=== PATIENT | female | born 1955 ===

== ENCOUNTER 2017-04-09 23:32 | Inpatient (IN) | payer MEDICARE ==
[~2017-04-09] VITALS: Ht 154.9 cm; Wt 82.0 kg
--- NOTE | ~2017-04-09 | WRIGHTHP ---
[place], [place] PATIENT HISTORY AND PHYSICAL EXAM [id number] #: [id number] ROOM: 311 DOCTOR: Jina MARROQUIN,ARTURO BIRTHDATE: [birth year] DOS: 04/10/2017 REASON FOR HOSPITALIZATION: Increased psychosis secondary to noncompliance with medication. HISTORY OF PRESENT ILLNESS: The patient seen and chart reviewed. A 61-year-old female with history of schizophrenia versus schizoaffective disorder, who was brought into the ER by the police. Police was called because the patient was increasingly psychotic, delusional and paranoid. The police had to pink slip her. Reportedly, the patient was being confrontational to neighbors and others around the area. She was screaming hoahaoism and odd things. She was throwing trash around her yard. She was also frequently arguing with her neighbors. The patient was in her bed. She is known to me from previous encounter in a different hospital. She was able to recognize me. When asked her that who took her to the hospital, she said that the police took her. When I asked her why the police took her to the hospital, she said "I don't know." She said that she was not taking her medication. When I asked her why she was not taking her medication, she did not answer me. The patient denied being depressed, sad, hopeless or helpless. She said that she will take her medication, but from my previous experience at the other hospital where the team had to go to the court and get forced medication order for her. PAST MEDICAL HISTORY: Significant for history of brain aneurysm and hypertension. PAST PSYCHIATRIC HISTORY: Three to four psychiatric hospitalizations. Denied prior suicide attempt. No suicide in the family. Denied having any gun at home. SUBSTANCE ABUSE HISTORY: The patient has a history of alcohol abuse in the past, but not regularly. Her urine drug screen was negative and she was also not drinking alcohol. SOCIAL HISTORY: She was born and raised in [place], [place]. She claims that she had 4 years of college, never , no kids. She said that she was living by herself. Denied any history of physical or sexual abuse. MENTAL STATUS EXAMINATION: The patient was pleasant and cooperative, described her mood as "okay." Affect, mood congruent, broad range, labile. Thought process disorganized. She denied auditory or visual hallucination, but seems responding to stimuli. She is delusional, grandiose and religiously preoccupied. She denied any suicidal ideation, intent or plan. She also denied any homicidal ideation, intent or plan. Insight and judgment impaired. ASSESSMENT: Schizoaffective disorder, currently psychotic and manic. PLAN: [place], [place] PATIENT HISTORY AND PHYSICAL EXAM NAME: HONEY VILLARREAL UNIT #: [id number] ROOM: [facility] DOCTOR: Jina MARROQUIN,ARTURO BIRTHDATE: [birth year] 1. I will start her back on Depakote, but increase the dose to 750 mg twice a day. 2. I will restart her back on Haldol 5 mg twice a day with a plan to give her a long-acting injection. 3. I will start her on Seroquel 200 mg twice a day. I am not sure if she will take that or not. 4. Continue redirection. 5. Supportive care, collateral information, encourage activity in groups. The patient probably will benefit from getting a guardian due to her long history of mental illness and noncompliance with medication. ARTURO MARROQUIN MD CM:HISPHYS:PATIENT HISTORY AND PHYSICAL EXAMINATION [phone] Jina MARROQUIN 04/10/17 1039 interface
--- NOTE | ~2017-04-09 | PR ---
[place], [place] PROGRESS NOTE NAME: HONEY VILLARREAL [facility] #: [id number] UNIT #: [id number] ROOM: 311 DOCTOR: DANNI GANDHI BIRTHDATE: [birth year] DOS: 04/22/2017 SUMMARY OF VISIT: The patient was interviewed in her room where she engaged in conversation. She is almost hypomanic. She was fixated on the fact the reason that her hemoglobin A1c's were up was because of the big ice coffee she used to drink. She really would engage me regarding psychiatric type stuff. She acknowledged receiving her medications yesterday. States her sleep and appetite are really good. Mood right now was appropriate with me. She is just a little off, but I do not have a good baseline on her yet. MENTAL STATUS: Alert and oriented to person, place, approximate time. No delusions or paranoia. No overt signs of auditory or visual hallucinations. Again, I think she is a little hypomanic. Good sleep and appetite. PLAN: She received her Haldol injection yesterday, I will see how she does over the next 24 hours. Plan is to get her discharged to least restrictive environment as possible once she is psychologically stable. LAURYN GANDHI CNP CM:PNTRANS [phone] DANNI GANDHI 04/22/17 1531 interface
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
--- NOTE | ~2017-04-09 | PR ---
[place], [place] PROGRESS NOTE [id number] UNIT #: [id number] ROOM: 311 DOCTOR: RALPH LAWRENCE MD BIRTHDATE: [birth year] DOS: 04/11/2017 CHIEF COMPLAINT: "I don't want that fake black market medicine, I only take oral medicine." SUMMARY OF THE VISIT: The patient was interviewed in her room. She engaged in conversation with a nurse present. She reports that she does not want to take any kind of fake medicine that is being offered to her. She feels that the medicine is all black market medicine and is not safe. She remains grossly psychotic and delusional. She was pleasant, however, though and engaged readily in conversation with me. She was somewhat flighty and tangential. MENTAL STATUS: She remains alert and oriented with some time gaps. Mood is labile and she shifts very quickly. She remains grossly psychotic and delusional. Her speech is nearly pressured, but she is interruptible. She is very circumstantial. She remains paranoid. Memory is intact. PLAN: At the present time, she is not wanting to be cooperative with her Seroquel. I will discontinue Seroquel p.r.n., Haldol and start her on Abilify 15 mg a day. I will also start her on Geodon as a p.r.n. We will engage in individual and crane milieu activity, planning to return home when stable. RALPH LAWRENCE MD CM:PNTRANS [phone] RALPH LAWRENCE MD 04/11/17 1305 interface
--- NOTE | ~2017-04-09 | PR ---
[place], [place] PROGRESS NOTE [id number] UN[facility] #: [id number] ROOM: 311 DOCTOR: RALPH LAWRENCE MD BIRTHDATE: [birth year] DOS: 04/19/2017 CHIEF COMPLAINT: "I don't need medicine, I don't have anything wrong with me." SUMMARY OF THE VISIT: The patient was interviewed as she was standing and watching television in the dining area. She stopped and engaged readily in conversation. She continued once again to deflect any issues, stating that she had no problems and was perfectly fine. She reports that she is sleeping better and eating better, mainly because the bright lights in the hallway have been turned down. Nurses report she continues to be episodically noncompliant with medications, for the most part mainly noncompliant but every once in a while she will slip and take some of her metformin or one of her other medications. She reports that she has nothing wrong with her both medically and psychiatrically and has no reason to be here. She is anxious to be able to talk to the judgment or classer to be able to convince them that she can be discharged. MENTAL STATUS: She remains alert and oriented. Mood does still seem to be wildly labile. Affect inappropriate. She does seem to be grossly delusional, religiously preoccupied and has limited insight into her behavior. At times, she does tend to escalate, but redirects more readily than she had been previously. Memory for the most part is intact. PLAN: At this point in time, we will proceed with the court hearing to determine whether or not any further length of stay is necessary. If this is granted, we will attempt to engage her then to cooperate so that we can work towards a plan in discharging her. The nurses have been able to episodically get her to take some of , but this has not been on a consistent basis and therefore, it is unlikely to be able to consistently work for her. We will continue to attempt to also engage her in individual and crane milieu activities with the ultimate plan to discharge her back to the community when psychiatrically stable. RALPH LAWRENCE MD CM:PNTRANS [phone] RALPH LAWRENCE MD 04/19/17 1436 interface
--- NOTE | ~2017-04-09 | DS ---
[place], [place] DISCHARGE SUMMARY [id number] UN[facility] #: [id number] ROOM: 311 DOCTOR: RHONDA PABLO BIRTHDATE: [birth year] DOS: 04/27/2017 CHIEF COMPLAINT: "I am ready to go home." HISTORY OF PRESENT ILLNESS: She is a 61-year-old female with a longstanding history of schizoaffective disorder. She was brought in to the Emergency Room by the police. At home, she had become increasingly psychotic, delusional and paranoid. She was confrontational with her neighbors, screaming restorationism and other bizarre thoughts, throwing trash around her yard and she was frequently getting into confrontations with her neighbors. She was involuntarily admitted to the Behavioral Health Unit to rule out metabolic issues and to stabilize her on her medication. PAST MEDICAL HISTORY: Significant for brain aneurysm and for hypertension. SUMMARY OF HOSPITAL COURSE: Margarette was grossly psychotic when she came in, paranoid having delusions, very religiously preoccupied. She was refusing her medication at the beginning of her stay, several antipsychotics were tried to try to break her psychosis, including Vraylar and Haldol and Thorazine. She refused to take anything by mouth. Eventually, it was explained to her that she needs to take her medication, hearing was held to establish whether or not she needs to have a guardian ____, she was competent and that deemed to bring her around. She originally was only taking her Haldol if she was given as an injection. After about 2 days, she started taking it by mouth and actually started asking if it was time to have it. Her behavior improved greatly whenever she started taking her medication. She became pleasant, ____ hypomanic, very talkative, intrusive a little bit into other people's conversations, but definitely not having restorationism preoccupations or delusions. She believed that she was not to take any medication that was generic that she did not require any medication at all. By the end of her stay, she had been taking her medication regularly. She was interacting appropriately with other residents, pleasant and talkative. She was given a loading dose of Haldol decanoate 150 mg. and her next dose will be due on 05/19/2017, she will get a second loading dose 1 month later of Haldol decanoate and continue that on a monthly basis at the outpatient clinic where she follows. MENTAL STATUS AT DISCHARGE: On discharge, as I described. She is pleasant and cooperative. Affect and mood are both appropriate. Her thought process has become less disorganized than it was previously. She denied any hallucinations, delusions or paranoia. She is alert and oriented x 3. DISPOSITION: She will be discharged home. Her scripts will be sent with her and at this point, she is in psychiatrically stable condition. [place], [place] DISCHARGE SUMMARY NAME: BRIDGET VILLARREALLAURYN Joshi UNIT #: [id number] ROOM: [facility] DOCTOR: RHONDA PABLO BIRTHDATE: [birth year] Rhonda Pablo NP CM:DISCHARG 30 [phone] RHONDA PABLO 04/27/172201 interface
--- NOTE | ~2017-04-09 | PR ---
[place], [place] PROGRESS NOTE [id number] #: [id number] ROOM: 311 DOCTOR: RALPH LAWRENCE MD BIRTHDATE: [birth year] DOS: 04/17/2017 INTERVAL NOTE. CHIEF COMPLAINT: "I won't take any medicines, I'm not sick, I don't need anything. The is just trying to poison people." SUMMARY OF THE VISIT: The patient was interviewed once again in her room. She sat on the bed and moved around in a very agitated fashion. She continues to be fixated on not eating medicines and not being sick, feeling that all the medicines are poison, and that the is plotting secretly to hurt people in this country. She continues to be noncompliant with all aspects of her care. MENTAL STATUS: She is alert and oriented with some time gaps. Mood is still labile. Affect inappropriate. For the most part, she is uncooperative with my mental status examination. PLAN: At this point, we will continue to offer her medication. We will be going to court soon and allow the signal integrity engineer to determine the appropriate course of her treatment at this point. RALPH LAWRENCE MD CM:PNTRANS [id number] RALPH LAWRENCE MD 04/17/17 1354 interface
--- NOTE | ~2017-04-09 | PR ---
[place], [place] PROGRESS NOTE [id number] UNIT #: [id number] ROOM: 311 DOCTOR: RALPH LAWRENCE MD BIRTHDATE: [birth year] DOS: 04/16/2017 CHIEF COMPLAINT: "I don't need anything, I don't need medicine, I am not sick." SUMMARY OF THE VISIT: The patient was interviewed in her room where she sat on her bed. She continues to be wildly labile in her mood and affect. Responses tend to be inappropriate. She continues to refuse all medicines, even her blood pressure medicines, stating that she has nothing wrong with her at all and she is perfectly fine and all of these medicines are poison and black market medicines and we are just trying to drug her. Attempts to redirect and show her the need for these medicines have been met with her continuing to be grossly delusional. MENTAL STATUS: She is alert and oriented to person, place, and approximate to time. Mood remains labile. Affect inappropriate. She is grossly delusional. There is a level of paranoia about her. Memory for the most part is intact. PLAN: Screening examinations reveal her to have a low vitamin D level of 25.7. I will start her on vitamin D 50,000 international units q. Tuesday. I will have staff show her the results of the low vitamin D and see if she is willing to comply. If not, this will be yet a further example of her gross delusion in believing that she has absolutely nothing wrong with her. RALPH LAWRENCE MD CM:PNTRANS [phone] RALPH LAWRENCE MD 04/16/17 1215 interface
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
--- NOTE | ~2017-04-09 | PR ---
[place], [place] PROGRESS NOTE [id number] #: [id number] ROOM: 311 DOCTOR: DANNI GANDHI BIRTHDATE: [birth year] DOS: 04/23/2017 SUMMARY: The patient was assessed in her room where she engaged really in conversation. 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 After they cut the pill, she was willing to take it. Other than that her only question for me was when I thought maybe she could get out of here and I advised her that per the doctor's note that it looked like it would be reevaluated on Tuesday, which she seemed to be okay with. MENTAL STATUS EXAMINATION: She is alert and oriented to person, place and approximate time. There are no delusions or paranoia that I could see. No overt signs of auditory or visual hallucinations, not hypomanic as I saw her yesterday. She has had good sleep, good appetite and engage in conversation, even though superficial. She does tend to fixate on things. PLAN: She received her Haldol injection a couple days ago, I think it is kicking and the plan is to discharge her to the least restrictive environment as possible once she is stable and again, I believe I saw the previous REMELT SUGAR BOILER's note or doctor's note that they were going to reevaluate that or per nursing on Tuesday. LAURYN GANDHI CNP RALPH LWARENCE MD CM:ANA 0302 DANNI GANDHI 04/25/17 1641 interface
--- NOTE | ~2017-04-09 | PR ---
[place], [place] PROGRESS NOTE [id number] UNIT #: [id number] ROOM: 311 DOCTOR: RALPH LAWRENCE MD BIRTHDATE: [birth year] DOS: 04/20/2017 CHIEF COMPLAINT: "I had a couple doses of the Haldol already, Dr. Lawrence." SUMMARY OF THE VISIT: The patient was interviewed as she sat eating her breakfast. She engaged readily in conversation. She was much more pleasant and bright and engaging and was actually goal directed in her thinking. I did attempt to educate her on alternatives to the Haldol. Once when I presented as having less side effects, she, however, reported that she has not had any side effects from the Haldol to date and would prefer just to stay with it at this point in time. She was not grandiose, moravian or demanding and she did tend to stay on topic much better. This after only a few doses of the Haldol. Initially, she required taking the Haldol intramuscularly, but lately then has been compliant and has taken it orally. MENTAL STATUS: She is alert and oriented to person, place and time. Mood does seem to be starting to trend towards euthymia. Affect is more appropriate. There are no symptoms of hypomania or angeli. Her delusions seem to have lessened in frequency and intensity. Memory is intact. PLAN: I will maintain the current dose of Haldol 5 mg p.o. or IM t.i.d. Given the fact that she does seem to be tolerating this well, I see no extrapyramidal symptoms, tardive dyskinesia, sedation, somnolence or other side effects. I will plan to load with Haldol Decanoate 150 mg IM tomorrow. We will maintain the oral and the possible intramuscular short-acting Haldol for few days just to make certain that we overlap monitor for risk and benefit, plan to discharge then home when psychiatrically stable. RALPH LAWRENCE MD CM:PNTRANS [phone] RALPH LAWRENCE MD 04/20/1746 interface
--- NOTE | ~2017-04-09 | PR ---
[place], [place] PROGRESS NOTE NAME: HONEY VILLARREAL UNIT #: [id number] ROOM: 311 DOCTOR: RALPH LAWRENCE MD BIRTHDATE: [birth year] DOS: 04/15/2017 CHIEF COMPLAINT: "I had the [facility] assessment, I will be going home today. I cannot take any of the medicines here, they are all black market and they make me sick." SUMMARY OF THE VISIT: The patient was interviewed in the dining area where she was sitting with a female peer. She did disengage and engaged in conversation with me. She continues to exhibit significant psychosis. She is very delusional and very labile in her mood. When I did discuss with her the fact that she would be having a court hearing today to determine whether or not she would have a continued length of stay, she reported to me that the court hearing had already occurred and that she was released and she should be going home today. When I attempted to redirect that this was not true, she was rather dismissive, but did not escalate to the point where she became verbally aggressive towards me as she has in the past. She remains fairly pleasant this morning, although again as mentioned previously, delusional. MENTAL STATUS: She is alert and oriented to person, place and approximate to time. Mood remains labile. Affect inappropriate. There is a significant amount of mood debility and gross psychosis noted. She does have some processing difficulty because of the psychosis. Memory for the most part is intact. PLAN: At this point, we will proceed with the court hearing to determine if a continued length of stay is warranted. We will continue to attempt to engage her in individual and crane milieu activity. We will also continue to attempt to engage her in compliance with pharmacotherapy. We will discharge her then when psychiatrically stable. RALPH LAWRENCE MD CM:PNTRANS 1 00 RALPH LAWRENCE MD 04/15/[id number] interface
[2017-04-10] MEDS ORDERED: LISINOPRIL20 MG PO (02:52)
[2017-04-10] MEDS ORDERED: AMLODIPINE BESYL5 MG PO (02:52)
[2017-04-10] MEDS ORDERED: METFORMIN500 MG PO (02:54)
[2017-04-10] MEDS ORDERED: OLANZAPINE10 MG PO (02:57)
[2017-04-10] MEDS ORDERED: DIVALPROEX SOD500 MG PO (02:58)
--- NOTE | 2017-04-10 04:00 | NUR ---
PT REFUSING TO PARTICIPATE IN ADMISSION ASSESSMENT. WILL COMPLETE MUCH POSSIBLE WITH INFORMATION FROM . WILL REAPPROACH AT A LATER TIME.
--- NOTE | 2017-04-10 04:08 | NUR ---
DR. HUBER MADE AWARE OF CONSULT FOR MED MANAGMENT
[2017-04-10 04:14] VITALS: BP 170/120
--- NOTE | 2017-04-10 04:14 | NUR ---
DR. HUBER MADE AWARE OF ELVELATED MANUAL BP OF 170/120. ORDERS RECIEVED FOR CLONDINE 0.2 MG PO NOW VERIFIED BY SECOND NURSE THEO MATAMOROS RN
[2017-04-10 04:19] VITALS: BP 170/120
--- NOTE | 2017-04-10 05:22 | NUR ---
HONEY VILLARREAL a 61 year old F admitted via stretcher from the ADMITTING as a emergency 72 hr. hold admission. Arrived on unit at 0330. ALLERGIES: RISPERDAL. Vital signs are: [id number] 170/120. The client refused to sign the following forms with stated understanding: Authorization For The Release of Medical Information, Clothing List, Consent and Release Forms/Receipt of Rights, Acknowledgement of Advance Directive Information, Behavioral Health Consent Form, and Informed Consent of Medications. Admitted under the services of Dr. MARROQUIN. A search was conducted and hazardous articles were removed. Client was oriented to the unit. ЕЛЕНА MATAMOROS
[2017-04-10 05:55] VITALS: BP 130/80
--- NOTE | 2017-04-10 05:55 | NUR ---
REPEAT BP OF 130/80. HTN BEGINNING TO RESOLVE IN RESPONSE TO MEDICATION.
--- NOTE | 2017-04-10 06:26 | NUR ---
24HR CHART CHECKS COMPLETE
--- NOTE | 2017-04-10 06:30 | NUR ---
PRN HALDOL AND BENADRYL INEFFECTIVE IN CALMING PATIENT. LABILE MOOD NOTED.
[2017-04-10] MEDS ORDERED: SEROQUEL100 MG PO (07:51)
[2017-04-10] MEDS ORDERED: HALDOL5 MG PO (07:51)
[2017-04-10] MEDS ORDERED: DEPAKOTE500 MG PO (07:52)
[2017-04-10] MEDS ORDERED: SEROQUEL300 MG PO (07:52)
[2017-04-10 08:39] VITALS: BP 118/78
--- NOTE | 2017-04-10 09:00 | NUR ---
PATIENT REFUSED MEDICATIONS, DR MARROQUIN TALKED WITH PATIENT AT THIS TIME AND PATIENT THEN WILLING TO TAKE MEDICATION AT THIS TIME. PATIENT PRAYED TO GOD FOR THE MEDICAITON AND WATER SHE WAS TAKING. THEN AFTERWARDS STARTED CURSING CALL THE NURSE A "BITCH". COMPLIANT WITH MEDICATIONS AT THIS TIME. PATIENT TALKING RELIGIOUSLY AT EACH MEAL AND TAKING MEDICATIONS WITH MUCH ENCOURAGEMENT.
--- NOTE | 2017-04-10 12:46 | NUR ---
PT did not attend Rt group this morning. PT was in room for group but became very inappropriate and disrespectful to other PTs and staff. PT using inappropriate language and refering to other PTs as stupid. Explained to PT this was not an appropriate place for that and PT refered to room as 3rd grade and staff member as the teacher. PT was removed from room by a nurse
[2017-04-10] MEDS ORDERED: LIPITOR40 MG PO (13:16)
--- NOTE | 2017-04-10 15:58 | NUR ---
PT did not attend RT group this afternoon. PT was asleep in her room
--- NOTE | 2017-04-10 17:19 | NUR ---
PATIENT IN DINING ROOM AND COMPLETED EATING DINNER. PATIENT PROVIDED WITH METFORMIN PERSCRIBED. PATIENT ARGUEMENTATIVE WITH MEDICATIONS STATING THE PILL WAS TOO BIG. PILL WAS CUT IN HALF AND PATIENT TOOK MEDICATION AT THIS TIME. PATIENT THEN STOOD UP CALLED NURSE A BITCH AND STARTED ARGUEING WITH NURSE AT NURSES STATION ON LEAVING. ONE ON ONE PROVIDED AND INEFFECTIVE. PATIENT WHEN DOWN TO ROOM FOR CHANGE OF ENVIRONMENT TO A LOW STIMULUS AREA.
--- NOTE | 2017-04-10 17:50 | NUR ---
PATIENT YELLING IN HALLWAY AND IN ROOM. PATIENT BEING CONFRONTATIONAL WITH OTHER PATIENTS IN REGARDS TO ORTHODOX AND ASKED IF OTHER PATIENT EVEN READS TO BIBLE. OTHER PATIENT ASSISTED AWAY FROM THIS PATIENT. ONE ON ONE PROVIDED TO LOWER VOICE DUE TO BEING DISRUPTIVE. PATIENT SPIT AT NURSE AND CONTINUES TO ESCULATE. PRN HALDOL 10MG IM AND PRN BENADRYL 50MG IM GIVEN AT THIS TIME. ONE GIVEN IN RIGHT DELTOID AND OTHER GIVEN IN LEFT DELTOID. PATIENT ENCOURAGED TO LAY DOWN IN BED TO REST.
--- NOTE | 2017-04-10 18:50 | NUR ---
PATIENT IS RESTING IN BED WITH EYES CLOSED, PRN HALDOL AND BENADRYL EFFECTIVE. PATIENT IS ALERT AND ORIENTED TO PERSON, PLACE AND TIME, ABLE TO VOICE NEEDS. MOOD IS LABILE AND PSYCHOTIC. THOUGHT PROCESS IS PREOCCUPIED WITH NONDENOMINATIONAL AND FLIGHT OF IDEAS. DENIES ANY HI/SI. HALLUCINATION AND DELUSIONS NOTED AUDITORY AND VISUAL, TAKING TO UNSEEN OTHER. PATIENT HAS INCREASED PARANIOA TAKING HER MEDICATIONS ARE SUGAR PILLS AND ATTEMPTS TO REFUSED MEDICATIONS. PATIENT IS AMBULATORY WITH STEADY GAIT. CONTINENT OF BOWEL AND BLADDER. MEAL INTAKE ARE GOOD WITH ADEQUATE FLUIDS. PATIENT CAN BECOME VERBALLY AGGRESSIVE AND POSSIBLE PHYSCIAL WHEN REDIRECTED. PLAN IS TO CONTINUE REDIRECTION, 1:1 AND CHANGE OF ENVIRONMENT NEEDED. MONITOR BEHAVIORS AND MEDICATION COMPLIANCE. Q 15 MINUTE CHECKS MAINTAINED.
[2017-04-10 19:53] VITALS: BP 103/51
--- NOTE | 2017-04-11 02:45 | NUR ---
PT AWOKE AND STARTED SINGING AND DANCING SWINGING FEET WHEN ASKED WHAT WAS WRONG PT THEN STARTED YELLING " I HAVE NO FUCKING SHOES ON, ARE THOSE YOUR SHOES? TAKE THEM THE FUCK OFF!" PT THEN BEGAN KNOCKING ON FLOOR WITH CLENTCHED FIST "THIS IS SO FUCKING HARD WHERE ARE MY FUCKING SHOES?". PT INFORMED THAT SHOE LACES ARE NOT ALLOWED ON THE UNIT AND THAT SHE COULD HAVE HER SHOES WITH OUT LACES. PT REFUSED AND BEGAN YELLING " JAX IS TURING ALL OF THIS INTO WATER, YOU CANT HURT ME". PT GIVEN A CHOICE OF TIME TO CALM HERSELF OR RECIEVE PRN INJECTION AND REMINDED OF UNIT RULES AND RESPECT FOR PEERS. PT IS RESTING ON BED AND NO LONGER DISPLAYING MANIC BEHAVIOR AND YELLING NONSENSICLE SPEECH AT THIS TIME.
--- NOTE | 2017-04-11 06:27 | NUR ---
PT REFUSING AM METFORMIN STATING THAT ALL DR.S AND LABS ARE LYING. PT BEGAN YELLING IN A SING SONGY VOICE "YOU'RE FUCKING STUPID SO FUCKING STUPID". PT INFORMED THAT THAT LANGUAGE WA INAAPROPRIATE AND NOT TOLERATED LEVEL OF DISRESPECT TOWARDS OTHERS. INFORMED OF HER RIGHT TO REFUSE MEDICATIONS. PT SLEPT 6 HOURS WITH OUT INTURRUPTION. CONTINUES TO ACTIVLY AUDITORY AND VISUAL HALLUCINATIONS, FOI, NONSENSICLE PRESSURED SPEECH.
--- NOTE | 2017-04-11 06:52 | NUR ---
PT CONTINUING TO REFUSE ALL LABS STATING THAT " SHOVE THAT BAR CODE UP YOU ASS" "MARY ALL READY HAD THOSE DONE I NEED YOU TO TAKE ANY OF MY BLOOD AND PERFORM EXPERIMENTS ON THE LORD HEALS ME"
[2017-04-11 08:00] VITALS: BP 122/67
--- NOTE | 2017-04-11 09:14 | NUR ---
Margarette is refusing all morning medications @ this time. She expressed some delusions related to her medications and added that she does not believe that she needs them. Education was provided, however, she is unreceptive @ this time.
--- NOTE | 2017-04-11 13:24 | NUR ---
Patient refused to participate during recreation therapy groups despite several attempts of encouragement.
--- NOTE | 2017-04-11 14:39 | NUR ---
Margarette has exhibited mood lability throughout the day. She has refused her lab testing and also her prescribed medications. On 1:1 interaction with staff she was noted to also exhibit sporadic episodes of irritability. This became more pronounced with the presentation of reality. She states that she hears "The holy spirit's voice." Voicing some paranoid ideas during her conversation with staff. Again reality orientation @ this time is noted to increase her agitation. She abruptly ended our conversation and stated, "Lady, you don't know what you are talking about. Now please leave my room." She is unreceptive to any attempts to educate her regarding prescribed medications. Insight is poor due to current mental status. Refer to [facility] flowsheet for specific monitoring. No urine specimen has been provided as of this time.
--- NOTE | 2017-04-11 15:50 | NUR ---
Patient was in and out of the room during recreation group this afternoon. Patient refusing to participate in painting craft. Patient confused and displaying delusional behaviors.
--- NOTE | 2017-04-11 19:48 | NUR ---
TREATEMENT TEAM WAS HLED TO [facility] WITH THE FOLLOWING: DR. LAWRENCE, SW, RNs, AND DIRECTOR.
[2017-04-11 20:00] VITALS: BP 114/63
--- NOTE | 2017-04-11 21:07 | NUR ---
PLEASENT AND COOPERATIVE. STATES SHE HAD AN "INTERESTING DAY". MEDICATION COMPLIANT. ATE FULL CONTAINER OF APPLESAUCE. DENIES ANY PROBLEMS AT THIS TIME. INFORMED HER WE NEED URINE SPECIMAN. VERBALIZED UNDERSTANDING. PLASTIC HAT PUT IN TOILET. ENCOURAGED HER TO CALL IF SHE NEEDS ANYTHING.
--- NOTE | 2017-04-11 21:25 | NUR ---
HANDED NURSE HER WRIST BAND. REFUSES TO WEAR STATES "IT BOTHERS ME". EXPLAINED REASON SHE NEEDS TO WEAR BUT SHE CONTINUES TO REFUSE
--- NOTE | 2017-04-12 00:10 | NUR ---
URINE OBTAINED. CLIENT IS PACING IN HER ROOM. RAMBLING RELIGOUS PHRASES AND PASSAGES OUT OF THE BIBLE. SHE CLAIMS THAT DEPAKOTE IS AN AMPHETAMINE AND MAKES HER UNABLE TO SLEEP. CONTINUES TO PACE ROOM AND WHEN CONFRONTED WITH REALITY SHE BECAME BELIGERANT AND ANGRY. SAT ON BED AND STARED AT ME FOR AWHILE THEN SAID SHE NEEDED MILK TO SETTLE HER BELLY AND HELP HER SLEEP. AMBULATED TO DININGROOM WHERE SHE DRANK 2 SMALL CARTINS OF MILK THEN WENT BACK TO ROOM. WILL MONITOR
--- NOTE | 2017-04-12 00:32 | NUR ---
24 HR chart check completed.
[2017-04-12 00:36] LABS: BILIRUBIN NEGATIVE (NEGATIVE); BLOOD NEGATIVE (NEGATIVE); CLARITY CLEAR (CLEAR); COLOR YELLOW (YELLOW); GLUCOSE NEGATIVE (NEGATIVE); KETONE NEGATIVE (NEGATIVE); LEUKO ESTERASE 1+ (NEGATIVE); NITRITE NEGATIVE (NEGATIVE); PH 5.5 (5.0-9.0); SPECIFIC GRAVITY <= 1.005 (1.005-1.030); UROBILINOGEN 0.2 E.U./dl (0.2-1.0)
--- NOTE | 2017-04-12 00:52 | NUR ---
APPEARS MILK EFFECTIVE FOR RESTLESSNESS AND AGGITATION. LAYING QUIET IN BED AND WHEN ASKED IF I COULD SHUT LIGHTS OFF SHE REPLIED "YES PLEASE" WILL MONITOR
[2017-04-12 00:53] LABS: BACTERIA 1+
--- NOTE | 2017-04-12 02:46 | NUR ---
P1- SCHIZOAFFECTIVE I- GROUP THERAPY, COPING SKILLS, UNDERSTAND THE DIFFERENCE BETWEEN DELUSIONS AND REALITY, MEDICATE PER DOCTORS ORDERS P--LIVE IN REALITY BASED SOCIETY, UNDERSTAND MEDICATIONS AND THEIR USES
--- NOTE | 2017-04-12 05:42 | NUR ---
CAME TO DESK WITH EXTREME ZOROASTRIANISM OVERTONES. CONTINUALLY REPEATING THAT SHE IS ALLERGIC TO ALL MEDICATIONS. SHOWS STAFF HER ALLERGY ALERT BRACELET AND SAYS THAT ST.E'S TOLD HER THAT SHE IS ALLERGIC TO ALL MEDICATIONS. BECAME AGGITATED WHEN PRESENTED WITH REALITY OF ALLERGIES AND STARTED CALLING STAFF BULLIES, LOSERS, ECT. REDIRECTION UNSUCCESSFUL. SHE INFORMED STAFF SHE IS NOT TAKING ANY MEDICATIONS BECAUSE SHE IS HEALTH AND GOD IS LOVE. WILL MONITOR
--- NOTE | 2017-04-12 06:31 | NUR ---
REFUSED AM CARE. STATES "I DON'T SHOWER IN COMMUNITY SHOWERS." UNABLE TO CONVINCE SHOWER IS CLEAN AND SHE WOULD NOT BE WITH OTHER WITHOUT SUCCESS. REFUSED MORNING MEDICATION. ASKED IF LAB WOULD BE ABLE TO DRAW BLOOD FOR TESTING ORDERED BY DOCTORS, SHE REFUSED.
[2017-04-12 09:23] VITALS: BP 136/82
--- NOTE | 2017-04-12 10:00 | NUR ---
PATIENT REFUSED LAB WORK AFTER 3 ATTEMPTS MADE. REFUSED ALL AM MEDICATIONS. KAYLIE PABLO NP AND ANGEL DIOR MADE AWARE. WILL HOLD LABS TODAY PER KAYLIE PABLO NP.
--- NOTE | 2017-04-12 13:23 | NUR ---
Patient refused to participate during recreation therapy groups this morning. When asked patient stands up waving her arms saying "I'm at a festival, don't bother me!" Patient also refusing recreation therapy assessments during this time.
--- NOTE | 2017-04-12 15:26 | NUR ---
PT attended RT group/trivia this afternoon, volunteering answers. Laughing and talking,reminicsing of her childhood. PT showed no inappropriate actions or language during group
--- NOTE | 2017-04-12 17:15 | NUR ---
PATIENT ALERT AND VERBAL. ABLE TO MAKE NEEDS AND WANTS KNOWN TO STAFF. PLEASANTLY PSYCHOTIC MOST OF THE SHIFT WITH PERIODS OF AGITATION AND IRRITABILITY. HAS BEEN VOICING MANDAEN, PARANOID, AND GRANDIOSE DELUSIONS T/O THE DAY. REALITY PRESENTED AND MET WITH AGITATION DURING THESE TIMES. REFUSED SHOWER THIS SHIFT AFTER MULTIPLE ATTEMPTS MADE- STATES "JAX DOEN'T ALLOW ME TO USE THE SHOWER PRODUCTS YOU HAVE, THEY AREN'T GOOD FOR ME." REALITY PRESENTED AND INEFFECTIVE. ONE ON ONE INEFFECTIVE. WALKING ABOUT THE UNIT THIS SHIFT, NO ELOPEMENTS ATTEMPTS MADE. NO COMBATIVE BEHAVIOR OR HALLUCINATIONS THIS SHIFT. REFUSED 1629 METFORMIN, STATES "I DON'T HAVE DIABETES AND WHAT ARE YOU TRYING TO GIVE THAT TO ME FOR." MEDICATION ATTEMPTED AND INEFFECTIVE. WILL CONTINUE Q15 MIN CHECKS, PRESENT REALITY NEEDED, REORIENT NEEDED. ONE ON ONE COMPLETED TODAY ABOUT NONCOMPLIANCE WITH TX AND REORIENTED WITH NO EFFECT. APPETITE GOOD THIS SHIFT, ATE 100% OF ALL MEALS. TAKING FLUIDS WELL. INTERACTING APPROPRIATELY WITH PEERS.
--- NOTE | 2017-04-12 18:46 | NUR ---
[facility].
[2017-04-12 20:00] VITALS: BP 155/83
--- NOTE | 2017-04-12 20:09 | NUR ---
INTERACTING WITH PEERS. CONTINUES WITH CHRISTIANITY OVERTONES. REFUSES TO HAVE BLOODPRESSURE RECHECKED MANUALLY..
--- NOTE | 2017-04-12 20:52 | NUR ---
REFUSED PM MEDICATIONS. INCREASED MELITA AND RELIGOUS OVERTONES YELLING AT STAFF AND PEERS ABOUT NOT BEING ABLE TO WEAR HER RED BRA. EXPLAINED THAT IT HAS AN UNDERWIRE AND CAN'T HAVE IT IT COULD BE A WEAPON. TRYING TO SHOVE HER PATIENT RIGHTS PAPERS IN MY FACE SAYING "IT DOESN'T SAY THAT" UNABLE TO REDIRECT ABOUT BRA. INFORMED CLIENT THAT SHE WOULD HAVE TO LEAVE DINING AREA IF SHE CAN'T CONTROL HERSELF AND STOP BOTHERING PEERS. CLIENT AGREED TO CALM DOWN. WILL MONITOR
--- NOTE | 2017-04-12 21:19 | NUR ---
TREATMENT TEAM WAS HELD TO [facility] WITH THE FOLLOWING: DR. LAWRENCE, RNs, AT, SW AND MEDICAL STUDENT. DR LAWRENCE WISHES TO FILE CIVIL COMMITTMENT DUE TO PT NOT READY FOR DISCHARGE.
--- NOTE | 2017-04-12 21:21 | NUR ---
ZANE COMPLETED HISTORY AND AFFADAVIT. NO NOTARY IN BUILDING. ZANE FAXED INFORMATION WITHOUT AFFIDAVIT TO [facility] [address] [facility].
--- NOTE | 2017-04-12 21:22 | NUR ---
ZANE LEFT VM FOR [facility] RE[facility] PRESCREENIG [facility]
--- NOTE | 2017-04-12 21:22 | NUR ---
ZANE RECEIVED VM FROM [facility] REQUESTING INFORMATION DUE TO HAVING PROVIDED SERVICES TO PT. ZANE RETURNED CALL AND INFORMED ALE THAT PT IS ON UNIT BUT DOES NOT WANT ALE TO KNOW DETAILS OF STAY.
--- NOTE | 2017-04-12 21:24 | NUR ---
SW ATTEMPTED TO COMPLETE PT'S PSYCHOPSOCIAL HISTORY . PT COOPERATIVE FOR A LITTLE WHILE THEN TOLD SW TO GET INFORMATION FROM THE POLICE. SW COMPLETED INFORMATION BUT USING THE CHART.
--- NOTE | 2017-04-13 00:38 | NUR ---
EYES CLOSED. RESP EASY NON LABORED. OFFERED MEDICATIONS A SECOND TIME BEFORE SHE WENT TO BED AND AGAIN REFUSED
--- NOTE | 2017-04-13 01:37 | NUR ---
24 HR chart check completed.
[2017-04-13 07:50] VITALS: BP 119/72
--- NOTE | 2017-04-13 09:10 | NUR ---
PATIENT REFUSED MEDICATIONS THIS MORNING X 3 ATTEMPTS, PROVIDED EDUCATION WHAT EACH MEDICATIONS WAS FOR. PATIENT STATED "IT'S MY RIGHT AND I'M NOT TAKING THEM" AND SHUT THE DOOR IN NURSE FACE.
--- NOTE | 2017-04-13 16:43 | NUR ---
PATIENT REFUSED METFORMIN MEDICATION AFTER MEDICATION EDUCATION.
--- NOTE | 2017-04-13 18:23 | NUR ---
PATIENT IS ALERT AND ORIENTED TO PERSON, PLACE AND TIME. ABLE TO VOICE NEEDS. MOOD IS LABILE AND PSYCHOTIC. TWO SMALL OUTBURST NOTED DURING SHIFT AND REDIRECTED EASILY. PATIENT CONTINUES TO REFUSED MEDICATION WITH MUCH ENCOURAGEMENT. THOUGHT PROCESS IS PARANOID AND PREOCCUPIED. PATIENT RESPONSE TO INTERNAL STIMULI WITH PARANOIA AND FAITH DELUSIONS. INDEPENDANT WITH ACTIVITIES OF DAILY LIVING. CAN BE EASILY AGAITATED, INTRUSIVE AND DEMANDING AT TIMES. DENIES ANY HI/SI OR PAIN. PATIENT IS AMBULATORY WITH STEADY GAIT. GOOD APPETITE WITH ADEQUATE FLUIDS. CONTINENT OF BOWEL AND BLADDER. Q 15 MINUTE SAFETY CHECKS MAINTIANED.
--- NOTE | 2017-04-13 18:47 | NUR ---
TREATMENT TEAM WAS HELD TO DISCUSS CARE WITH THE FOLLOWING: DR. LAWRENCE, RNs, SW, AND MEDICAL STUDENT. SW REPORTED THAT PAPERWORK WAS FILED FOR VCIVIL COMMITTMENT WITH PROBATE COURT. DR. LAWRENCE FEELS PT NEEDS FURTHER TREATMENT DUE TO HER NONCOPLIANCE WITH TAKING MEDICATIONS.
--- NOTE | 2017-04-13 18:47 | NUR ---
SW HAD AFFIDAVIT NOTARIZED AND FAXED TO [facility] [address] [facility].
--- NOTE | 2017-04-13 18:49 | NUR ---
[facility] ON UNIT TO COMPLTE PRESCREEENING. ZANE [facility]ED [facility] COPY ON CHART.
--- NOTE | 2017-04-13 18:51 | NUR ---
[facility] INFORMING THAT AFFIDAVIT NEEDS SIGNED BY TREATING PHYSICIAN. ZANE CALLED DR. LAWRENCE. DR. LAWRENCE AT [facility]. ZANE WENT TO [facility] TO HAVE DR. LAWRENCE REVIEW AND SIGN FORM. FORM REFAXED TO [facility] COURT.
--- NOTE | 2017-04-13 18:53 | NUR ---
ANOTHER CALL RECEIVED FROM COURT REQUESTING THAT THAT MY NAME BE CROSSED OUT AND DR. LAWRENCE'S NAME BE ADDED. FORM CORRECTED AND SENT TO [facility] [address] [facility].
--- NOTE | 2017-04-13 18:54 | NUR ---
[facility] DR. LAWRENCE NEEDED TO COMPLETE NEW FORM AND HAVE IT NOTORIZED. DILIP SOLIS FROM [address]OB[address] REQUESTING WHEN NEW AFFIDAVIT WOULD BE SENT. RETURNED CALL AND INFORMED THAT DR. LAWRENCE WOULD O FOR IN THE MORNING AND IT WOULD BE SUBMITTED ON THE .
--- NOTE | 2017-04-13 18:56 | NUR ---
ZANE SENT DR. LAWRENCE A SECURE TEXT MESSAGE THAT NEW FORM NASIMAE DOUT BY HIM WAS NEEDED FOR [facility] [address] [facility].
[2017-04-13 19:34] VITALS: BP 154/95
--- NOTE | 2017-04-13 20:12 | NUR ---
THIS NURSE WENT TO RECHECK PATIENTS BP MANUAL, PATIENT REFUSED WITH IRRITABILITY NOTED, STATING "NO NO I JUST GOT IT CHECKED I DONT WANT IT RECHECKED, IM FINE". VOICES NO PHYSICAL COMPLAINTS, NO SIGNS OR SYMPTOMS OF DISTRESS NOTED.
--- NOTE | 2017-04-13 20:46 | NUR ---
DR. AZEVEDO UPDATED WITH PATIENT ELEVATED BLOOD PRESSURE OF 154/95. DR. AZEVEDO AWARE THAT PATIENT REFUSED TO HAVE BLOOD PRESSURE RECHECKED MANUALLY. NO NEW ORDERS AT THIS TIME
--- NOTE | 2017-04-13 21:47 | NUR ---
PATIENT REFUSED HS MEDICATIONS AFTER X3 ATTEMPTS AND EDUCATION, PATIENT NOT RECEPTIVE TO EDUCATION STATING "YEAH IM JUST GOING TO SEE MY PRIMARY CARE DOCTOR WHEN I LEAVE HERE UP IN [facility], I DONT WANT THAT MEDICATION". PATIENT RECIEVED PRN TYLENOL 650MG PO REQUESTED FOR COMPLAINTS OF "ALL OVER BODY ACHES" WITH A RATING OF 5/10. NO OTHER PHYSICAL COMPLAINTS VOICED. DENIES FEELINGS OF DEPRESSION, HALLUCINATIONS AND ANXIETY. PATIENT STATED "OH NO I FEEL FINE, I DONT HAVE ANY OF THAT". NO NOTED RESPONDING TO INTERNAL STIMULI SO FAR THIS SHIFT. PATIENT CURRENTLY IN BED WITH EYES OPEN, RESPIRATIONS EASY AND REGULAR, NO SIGNS OR SYMPTOMS OF DISTRESS NOTED.
--- NOTE | 2017-04-14 01:33 | NUR ---
24 HOUR CHART CHECK COMPLETED.
--- NOTE | 2017-04-14 02:22 | NUR ---
PATIENT APPROACHED NURSES STATION ASKING FOR WATER, PATIENT STATED THAT THE TYLENOL GIVEN TO HER AT 2147 "WORKED LIKE MAGIC" AND HER PAIN RATING IS A 2/10. PRN TYLENOL EFFECTIVE AT THIS TIME. PATIENT CURRENTLY IN ROOM SITTING UP IN BED READING. NO SIGNS OR SYMPTOMS OF DISTRESS NOTED.
--- NOTE | 2017-04-14 05:44 | NUR ---
PATIENT OBSERVED ON Q 15 MIN CHECKS TO HAVE SLEPT APPROX 4 HOURS INTERRUPTED WITH MULTIPLE AWAKENINGS TO SIT UP IN BED TO READ OR TO APPROACH NURSES STATION. EASILY REDIRECTED BY STAFF. NO SIGNS OR SYMPTOMS OF DISTRESS NOTED.
--- NOTE | 2017-04-14 06:40 | NUR ---
PATIENT REFUSED AM GLUCOPHAGE AFTER X3 ATTEMPTS AND EDUCATION. PATIENT NOT RECEPTIVE TO EDUCATION STATING "NO MY SUGAR IS FINE, I WATCH WHAT I EAT, I DONT WANT THAT". NO SIGNS OR SYMPTOMS OF DISTRESS NOTED.
[2017-04-14 08:13] VITALS: BP 136/84
--- NOTE | 2017-04-14 09:25 | NUR ---
PATIENT REFUSED MEDICATIONS THIS MORNING STATING "I FOLLOW ORDERS FROM DR. MON (HER PCP) AND WILL NOT TAKE THESE MEDS. PATIENT CLEANING UP AT IN HER BATHROOM NUT REFUSES TO CHANGE HER CLOTHES. DENIES ANY PAIN AT THIS TIME.
--- NOTE | 2017-04-14 11:24 | NUR ---
PT did not attend RT Group/exercise this morning. PT refused stating she did not get much sleep last night. This staff tried encouraging PT but she stated "I dont want to show anyone up. 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 PT refused
--- NOTE | 2017-04-14 13:47 | NUR ---
Attempted to do assessment with PT but PT refused,saying she did one yesterday. Told PT this assessment was for activities but PT still refussed stating she was too tired that maybe shed do it tomorrow or the next day
--- NOTE | 2017-04-14 15:05 | NUR ---
TRETMENT TEAM WAS HELD TO DISCUSS CARE WITH THE FOLLOWING: DR. LAWRENCE, MEDICAL STUDENT, AT, RN, SW. CIVIL COMMITTMENT WAS FILED FOR PT TO REMAIN FOR TREATMENT.
--- NOTE | 2017-04-14 15:05 | NUR ---
DR. LAWRENCE COMPLETED AFFIDAVIT AND SW FAXED IT TO [place] [address].
--- NOTE | 2017-04-14 15:07 | NUR ---
ZANE CALLED TO MAKE SURE [place] [address] RECEIVED INFORMATION. INFORMATION RECEIVED AND REPAIRER EVAPORATOR IS REVIEWING IT.
--- NOTE | 2017-04-14 15:08 | NUR ---
LETTER OF DENTENTION RECEIVED FOR PATIENT. COPY ON CHART.
--- NOTE | 2017-04-14 15:08 | NUR ---
[facility] IF [facility] ON VIDEO CAPIBILITY. ZANE ASKED DIRECTOR AND DIRECTOR STATED NOT AT THIS TIME ON THE UNIT. ZANE RETURNED CALL TO [facility] AND REPORTED NO VIDEO CAPIBILITY. CELIA WILL TALK WITH WELCOME WAGON HOSTESS AND CALL BACK. CELIA WILL TRY TO SET UP FOR TUESDAY.
--- NOTE | 2017-04-14 15:10 | NUR ---
ZANE RECEIVED CALL BACK FROM [facility] REPORTING THAT JURISDICATION WAS TRANSFERRED TO [facility]. ZANE LEFT FOR DIRECTOR.
--- NOTE | 2017-04-14 15:42 | NUR ---
PT did not attend RT Group/Riddles,Choices this afternoon. When PT was asked to join PT refused stating she was tied and got no sleep last night. This staff tried encouraging PT telling her she missed morning group to sleep but PT stated she didnt care she was going to sleep
--- NOTE | 2017-04-14 16:51 | NUR ---
PATIENT REFUSES TO TAKE MEDICATIONS, STATING SHE DOES NOT HAVE ANY PRESCRIPTIONS, SHE WILL GO TO HER NURSE PRACTIONER AFTER DISCHARGE, SHE IS FROM [facility].
--- NOTE | 2017-04-14 18:25 | NUR ---
PATIENT IS ALERT AND ORIENTED TO PERSON, PLACE AND TIME, ABLE TO VOICE NEEDS. MOOD IS LABILE AT TIMES AND PSYCHOTIC. REFUSED MEDICATIONS WITH MUCH ENCOURAGEMENT. THOUGHT PROCESS IS PARANOID. PATIENT IS ISOLATIVE TODAY IN ROOM MOST OF THE DAY, PARTICITPATES IN GROUP AND TO DINNING ROOM FOR MEAL. GOOD APPETITE WITH ADEQUATE FLUID. CONTINENT OF BOWEL AND BLADDER. AMBULATORY THROUGHOUT UNIT. Q 15 MINUTE SAFETY CHECKS MAINTAINED.
[2017-04-14 20:22] VITALS: BP 123/66
--- NOTE | 2017-04-15 02:12 | NUR ---
PT C/O PAIN TO HER HEELS, ASKED FOR SHOES. PT ASKED FOR TYLENOL. WHEN PT RECEIVED TYLENOL PT TOOK MEDICATION AND THEN ASKED IF I WAS SURE SHE GOT THE RIGHT MEDICATION. WHEN PT WAS REASSURED SHE WAS GIVEN THE CORRECT MEDICATION AND THEN PT STATED SHE WAS NAUSEOUS. PT GIVEN WATER AT THIS TIME.
--- NOTE | 2017-04-15 03:12 | NUR ---
PRN TYLENOL EFFECTIVE. NO S/S OF GRIMACING OR PAIN NOTED. PT RESTING QUIETLY IN BED.
--- NOTE | 2017-04-15 04:51 | NUR ---
24 HR chart check completed.
--- NOTE | 2017-04-15 06:03 | NUR ---
PT SLEPT 5 HOURS INTERRUPTED. NO S/S OF DISTRESS NOTED. NO C/O PAIN AT THIS TIME. PT REFUSED ALL MEDICATIONS EXCEPT TYLENOL THIS SHIFT. NO HALLUCINATIONS OR DELUSIONS NOTED.SEE [facility] FLOWSHEET FOR SPECIFIC MOMNITORING.
--- NOTE | 2017-04-15 06:43 | NUR ---
PT REFUSED GLUCAPHAGE THIS AM. PT STATED SHE WAS WORRIED ABOUT HER SUGAR DROPPING TO LOW LIKE HER BP DID WHEN SHE TOOK BP MEDS.
[2017-04-15 07:55] VITALS: BP 134/66
--- NOTE | 2017-04-15 09:30 | NUR ---
TREATMENT CHO WAS HELD TO DISCUSS CARE WITH THE FOLLOWING: DR. LAWRENCE, MEDICAL STUDENT, NURSE PRACTIONER, RN, AT, AND SW. [facility] [place] [facility]
--- NOTE | 2017-04-15 09:40 | NUR ---
Pt refused all medication despite encouragement and education. Pt's insight to mental and medical illness is poor. Pt denies having hypertension and mood disorder. Pt stated "dieting is most important and that's how I prefer to control my blood pressure".
--- NOTE | 2017-04-15 10:38 | NUR ---
ROXANNA CAMPBELL UPDATED ON PATIENT'S BEHAVIOR THIS MORNING AND THAT SHE IS REFUSING MEDICATIONS. SHE IS NOW ON THE UNIT TO SEE PATIENT.
--- NOTE | 2017-04-15 11:12 | NUR ---
PT was encouraged to attend RT group but refused stating she had callouses on her feet from the would floor and couldnt walk on it. PT told this staff of [employer] to her muscles and feet as she slept. PT then decided to join group. PT were making their daily goals and this staff was making suggestions and giving examples of goals when PT became upset and stated she was not staying because this staff member was controlng and domineering and she wasnt putting up with it. PT left room and returned to her room. This staff will attempt to get PT to come to afternoon group
--- NOTE | 2017-04-15 14:40 | NUR ---
PT did not attend RT Group/games. PT prefered to stay in her room to read her Bible. PT also stated she can not walk in the boyd because the wood floor gives her callouses. PT is often withdrawn and refuses to join any activity
--- NOTE | 2017-04-15 16:57 | NUR ---
PT REFUSED GLUCAPHAGE STATING THAT SHE DOESN'T KNOW HER A1C SO SHE DOES NOT FEEL COMFORTABLE TAKING THE MEDICATION. PT WAS ENCOURAGED TO ALLOW LAB DRAW BLOOD TOMORROW MORNING IN ORDER TO DETERMINE WHAT HER A1C IS. PT AGREED.
--- NOTE | 2017-04-15 17:01 | NUR ---
SHANNAN PHILLIPS, MADE AWARE THAT PATIENT IS WILLING TO ALLOW LAB DRAW BLOOD TOMORROW MORNING VIA TELEPHONE.
--- NOTE | 2017-04-15 17:47 | NUR ---
daniel from [facility] informing that she received informatio on court hearing. cell # [phone].
--- NOTE | 2017-04-15 17:48 | NUR ---
SW received message from [facility] [facility] that papers were ready for mushroom picker for Pt. Hearing is April 19 at 8am.
--- NOTE | 2017-04-15 17:49 | NUR ---
ZANE went to [place], [place] to pickup court papers for hearing Agust at 8am at [facility] [address].
--- NOTE | 2017-04-15 17:50 | NUR ---
SW served Pt with court papers informing her of the hearing date and her rights. Hearing April 19 at 8am.
--- NOTE | 2017-04-15 18:34 | NUR ---
PATIENT'S BEHAVIOR HAS BEEN SUSPICIOUS THOUGHTOUT THE DAY. SHE HAS BEEN OBSERVED GESTURING AND SPEAKING TO HERSELF. UNABLE TO DETERMINE IF SHE IS HAVING HALLUCINATIONS OR IF SHE IS TRULY JUST SPEAKING TO HERSELF. PT'S INSIGHT TO MENTAL ILLNESS IS POOR. SHE DENIES THAT SHE HAS A MOOD DISORDER OF ANY TYPE. PT HAS FLIGHT OF IDEAS AND IS HYPERACTIVE. SHE HAS BEEN SEEN PACING IN HER ROOM, IN THE [place] AND IS HYPERVERBAL TO PEERS AND STAFF. PT'S MOOD QUICKLY RANGES FROM ELATED TO ANGRY, IRRITABLE AND DEFENSIVE. PT CONTINUES TO REFUSE ALL MEDICATIONS, HOWEVER IS REQUESTING A VITAMIN D SUPPLEMENT. PT WAS ENCOURAGED TO SPEAK WITH DR. LAWRENCE REGARDING HER REQUEST TOMORROW MORNING. SHE AGREED. PT'S APPEARANCE IS BIZARRE AND INAPPROPRIATE FOR HER AGE. SHE IS WEARING [place] TIGHTS UNDER A PURPLE SKIRT, [place] GREEN SOCKS AND A BLACK SHIRT. PT IS CURRENTLY IN HER ROOM SPEAKING WITH HER ROOMATE.
[2017-04-15 20:00] VITALS: BP 128/75
--- NOTE | 2017-04-15 21:00 | NUR ---
PT REFUSING TO TAKE MEDICATION AT THIS TIME. FIXATED ON VITAMIN D LEVELS AND A1C. REASSURED PT THAT THESE CONCERNS WILL BE DISCUSSED WITH THE PHYSICIANS IN THE AM. PT BELIEVES MEDICATION IS A "SUGAR PILL". FIXATED ON JEHOVAH'S WITNESS DELUSIONS.
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
--- NOTE | 2017-04-16 05:02 | NUR ---
PT SLEPT VERY LITTLE DURING THIS SHIFT. FIXATED ON HEMOGLOBIN A1C LAB DRAW. FREQUENTLY APPROACHING NURSES STATION TO REPORT HOW HER ROOMMATE IS SLEEPING AND REQUESTING ICE. PT IS PLEASANTLY DELUSIONAL. DENIES SI/HI, OR ANY AUDITORY/VISUAL HALLUCINATIONS. ALERT AND ORIENTED X3. PT DENYING ANY NEED FOR MEDICATIONS. REFER TO FLOWSHEET FOR ADDITIONAL INFO
--- NOTE | 2017-04-16 06:12 | NUR ---
PT SLEPT <5HRS WITH FREQUENT INTERRUPTIONS
[2017-04-16 06:54] LABS: BASO # 0.1 10*3/uL (0.0-0.1); BASO % 0.8 % (0.0-1.0); EOS # 0.2 10*3/uL (0.0-0.4); EOS % 2.2 % (1.0-4.0); HEMATOCRIT 45.4 % (37.0-47.0); HEMOGLOBIN 15.1 g/dl (12.0-16.0); LYMPH # 2.7 10*3/uL (1.3-4.4); LYMPH % 36.3 % (27.0-41.0); MEAN CELL VOLUME 85.7 fl (81.0-99.0); MEAN CORPUSCULAR HGB 28.5 pg (27.0-31.0); MEAN CORPUSCULAR HGB CONC 33.3 g/dl (33.0-37.0); MEAN PLATELET VOLUME 9.5 fl (9.6-12.3); MONO # 0.6 10*3/uL (0.1-1.0); MONO % 7.5 % (3.0-9.0); NEUT # 3.9 10*3/uL (2.3-7.9); NEUT % 53.1 % (47.0-73.0); PLATELET COUNT AUTOMATED 275 10*3/uL (130-400); RED CELL DISTRI WIDTH 12.6 % (0-14.5); WHITE BLOOD COUNT 7.3 10*3/uL (4.8-10.8)
[2017-04-16 07:27] LABS: ALBUMIN 3.7 gm/dl (3.1-4.5); ALKALINE PHOSPHATASE 103 U/L (45-117); BUN 9 mg/dl (7-24); CHLORIDE 101 mmol/L (98-107); CHOLESTEROL 183 mg/dL (<200); CREATININE 0.68 mg/dL (0.55-1.02); FREE T4 1.11 ng/dl (0.76-1.46); HDL CHOLESTEROL 74 mg/dl (40-60); LDL CHOLESTEROL 88 mg/dL (9-159); MAGNESIUM 2.4 mg/dL (1.5-2.1); PHOSPHOROUS 3.7 mg/dL (2.5-4.9); POTASSIUM 3.5 mmol/L (3.5-5.1); SGOT/AST 13 IU/L (3-35); SGPT/ALT 23 U/L (12-78); SODIUM 137 mmol/L (136-145); TOTAL PROTEIN 7.7 gm/dL (6.4-8.2); TRIGLYCERIDES 107 mg/dl (<150); VLDL CHOLESTEROL 21 mg/dL (6-40)
[2017-04-16 08:04] VITALS: BP 121/84
[2017-04-16 09:13] LABS: VITAMIN D, 25-HYDROXY 25.7 ng/mL (30-100)
--- NOTE | 2017-04-16 10:46 | NUR ---
HONEY HAS REFUSED ALL PRESCRIBED MEDICATIONS THIS MORNING IN SPITE OF EDUCATION PROVIDED BY STAFF. STATES A BELIEF THAT SHE DOES NOT NEED MEDICATION, "MY MIND IS FINE."
--- NOTE | 2017-04-16 18:35 | NUR ---
Margarette has been insistant that she does not need medications and has continued to refuse to take them. She lacks insight into current issues due to her mental status. Anglican overtones are noted throughout her conversation with staff. Inappropriate laughter and affect are noted @ times. Dr. Scott in to see her. Vitamin D level @ 25.7. Dr. Scott in to see Margarette with orders received for vitamin D 50,000 IU im q Tuesday. Margarette has expressed grandiose statements @ intervals. Though she denies any hallucinatory activity, she has been noted to laugh inappropriately @ times while sitting alone in her room. Refer to [facility] flow sheet for specific monitoring.
[2017-04-16 20:20] VITALS: BP 150/75
--- NOTE | 2017-04-17 03:32 | NUR ---
24HR CHART CHECK COMPLETE
--- NOTE | 2017-04-17 05:27 | NUR ---
PT SLEPT <4 HRS WITH FREQUENT INTERRUPTIONS. PT HAS NO INSIGHT INTO PSYCHIATRIC ILLNESS. SPOKE WITH PT IN DEPTH REGARDING THE IMPORTANCE OF ADHERING TO THE MEDICATION REGIMENT. PT VERBALIZED NO UNDERSTANDING OF THE EDUCATION. STATES "THE FDA SHOULDN'T APPROVE YOUR FOOD AND YOUR DRUGS." PT IS PARANOID REGARDING HER MEDICATIONS. ASCRIBES OTHER OUTSIDE FACTORS TO HER BEHAVIOR. DENIES SI/HI. PARANOID DELUSIONS PRESENT. NO EVIDENCE OF ATTENDING TO INTERNAL STIMULI NOTED AT THIS TIME. REFER TO FLOWSHEET FOR ADDITIONAL INFO.
--- NOTE | 2017-04-17 08:00 | NUR ---
GREGORY, RN MADE AWARE PT REFUSED VITALS THIS MORNING.
--- NOTE | 2017-04-17 08:57 | NUR ---
HONEY REFUSES TO TAKE ANY PRESCRIBED MEDICATIONS TODAY. NOT RECEPTIVE TO EDUCATION PROVIDED BY STAFF.
--- NOTE | 2017-04-17 09:19 | NUR ---
REFUSED VITAL SIGNS AND PULSE OX CHECK THIS MORNING. STATES, "It is not needed."
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
--- NOTE | 2017-04-17 22:11 | NUR ---
P-1 SCHIZOAFFECTIVE DISORDER--DELUSIONS I- ATTEMPT TO REDIRECT WITH EMOTIONAL SUPPORT. EXPLAIN WHY MEDICATIONS IMPORTANT, ORIENT TO REALITY BASED THINKING P- MEDICATION COMPLIANCE, NO DRUZE DELUSIONS, ORIENTED TO PLACE, TIME SITUATION CLIENT CAME TO DININGROOM DURING SNACK BUT REFUSED TO EAT, WALKED AROUND ROOM IN A GRANDIOUS FASHION. REFUSED TO INTERACT WITH STAFF. WENT TO HER ROOM. DURING MEDICATION PASS I OPENED DOOR AND SHE YELLED "NO". WILL CONTINUE TO MONITOR
--- NOTE | 2017-04-18 01:30 | NUR ---
CLIENT HAS STRIPPED HER BED AND IS CURRENTLY SITTING MALAGASY STYLE HOLDING PILLOW. WHEN I STEPPED IN SHE SAID "I AM PRAYING IN TONGUES, DO YOU KNOW WHAT THAT IS". OFFERED TO REMAKE HER BED AND SHE DECLINED. STATES THE MATTRESS IS SOFT ENOUGH FOR HER
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
--- NOTE | 2017-04-18 02:13 | NUR ---
KIKILUIS CARLOS GIVEN IM PER ORDERS FOR HER AGGRESSIVE MANIC BEHAVIOR. CLIENT TOOK SHOT WITHOUT RESISTANCE BUT KEPT REPEATING, RELIGOUS PHRASES AND TOLD ME "IT WON'T TRANQUILIZE ME IT IS JUST SUGAR WATER". REMAINS IN QUIET ROOM BEING MONITORED.
--- NOTE | 2017-04-18 03:06 | NUR ---
LAYING DOWN ON COUCH. REMAINS AWAKE. CONFRONTATIONAL WITH STAFF WHEN WE ENTER ROOM
--- NOTE | 2017-04-18 04:14 | NUR ---
UP TO VOID. CONTINUES TO SAY SHE HAD TO MAKE THE FLOORS SOFTER WITH WATER. BACK TO QUIET ROOM. 24 HR chart check completed.
--- NOTE | 2017-04-18 05:12 | NUR ---
SITTING UP IN ROCKING CHAIR AT THIS TIME
--- NOTE | 2017-04-18 06:39 | NUR ---
STATES SHE WILL TAKE AFTER BREAKFAST
--- NOTE | 2017-04-18 06:47 | NUR ---
AMBULATING IN HALLWAY TALKING TO UNSEEN PERSONS. SPEECH RAMBLING WITH FLIGHT OF IDEAS NOTED
--- NOTE | 2017-04-18 09:12 | NUR ---
PATIENT ESCULATING, YELLING IN HALLWAY, THREATENING STAFF WITH TOOTHBRUSH AND BECOMING VERY AGGRESSIVE TOWARDS STAFF. GOING INTO OTHER PATIENTS ROOM AND BEING DISTRUCTIVE. 1:1 AND REDIRECTION INEFFECTIVE. PRN THORAZINE 50MG IM GIVEN TO LEFT BUTTOCKS AT THIS TIME. PATIENT ENCOURAGED TO LAY IN BED AND REST AT THIS TIME.
--- NOTE | 2017-04-18 09:30 | NUR ---
KYLER CAMPBELL CNP ON UNIT TO SEE PATIENT.
--- NOTE | 2017-04-18 09:45 | NUR ---
KYLER CAMPBELL ENVIRONMENTAL AUDITOR HERE TO SEE PT AT THIS TIME, UPDATE GIVEN.
--- NOTE | 2017-04-18 10:04 | NUR ---
PRN THORAZINE EFFECTIVE, PATIENT NO LONGER AGGRESSIVE, CALM DEMEANOR AND PARTICIPATING IN GROUP SESSION. PATIENT USING INSIDE VOICE.
--- NOTE | 2017-04-18 10:19 | NUR ---
TREATMENT TEAM WAS HELD TO DISCUSS CARE WITHTHE FOLLOWING: DR. LAWRENCE, RN, AT, AND SW. COURT HEARING FOR DENTENTIO SCHEDULED FOR March AT 8AM. PT TOOK SOME MEDS WHEN RN CRUSHED THEM. DR. LAWRENCE STILL WANTS PT TO HAVE SHOT.
--- NOTE | 2017-04-18 11:26 | NUR ---
PT did attend RT Group/Reminiscing this morning as well as participate. PT was very pleasent, friendly and encouraging to other PTs. PT was appropriate in her speaking as well as actions. PT also joined in talking of growing up and favorite things.
--- NOTE | 2017-04-18 15:35 | NUR ---
PT did not attend RT Group/cards this afternoon. PT was sleeping in her room. PT did come to lounge when she woke up and when asked if she wanted to play she refused. Encouraged PT to play but she wanted "to be an Observer." While PT was in room with group PT asked AT for her sweater. When AT told her she could not have her sweater PT said "Please. I want your sweater. Why wont you give me your sweater?" AT insisted PT was not getting her sweater and PT left the room.
--- NOTE | 2017-04-18 16:30 | NUR ---
PATIENT REFUSED METFORMIN, STATING I ONLY NEEDED IN THE MORNING PER MY DOCTOR.
--- NOTE | 2017-04-18 17:52 | NUR ---
PATIENT IS ALERT AND ORIENT TO PERSON, PLACE AND TIME. ABLE TO VOICE NEEDS. CAN BE IRRITABLE, ANXIOUS, LABILE AT TIMES. DENIES ANY HALLUCINATIONS, DELUSION WITH PARANOIA. RESPONDS TO INTERNAL STIMULI WITH RELGIOUS THOUGHTS PRIOR TO TAKING MEDICATIONS. REFUSED AFTERNOON MEDICATION. DENIES ANY PAIN OR DISCOMFORT. MANIC EPISODES X 2 DURING THE DAY AND REDIRECTED NEEDED. REFUSES TO SHOWER. CONTINENT OF BOWEL AND BLADDER. MEAL INTAKES ARE GOOD WITH ADEQUATE FLUIDS. Q 15 MINUTE SAFETY CHECKS MAINTIANED.
--- NOTE | 2017-04-18 21:28 | NUR ---
PT HAS INCREASED ANXIETY. PT STATING FAISAL WAS A SPOT LIGHT IN THE HALLWAY SHINNING IN HER FACE WHEN SHE LIES IN BED. PT HAD SHEETS OFF BED AND WAS SITTING ON THE BARE MATTRESS. REFUSED TO LET STAFF MAKE HER BED. PT REFUSED MEDICATION STATING SHE NEVER MET DR LAWRENCE AND HE DIDNT ORDER ANYTHING FOR HER. PT THEN STARTED SAYING RANDOM LETTERS. PT THEN STATED SHE DIDNT FLOOD HER ROOM SHE ONLY HAD THIS MUCH WATER ON THE FLOOR AND IT SOAKED THROUGHT THE FLOOR TO SOFTEN IT BECAUSE OVER THE YEARS OF ADDING CHEMICALS TO IT THAT MAKES IT HARD. PT STATED AFTER 2-3 HOURS IT SOAKED THROUGHT THE FLOOR AND IT MADE THE FLOOR SOFTER THAN BEFORE. PT THEN STATED SHE DIDNT FLOOD HER TOILET OR FLUSH PAPERTOWELS DOWN IT. PATIENT IS STATING ALL THIS STUFF SHE IS SITTING ON THE BARE MATTRESS AND ROCKING BACK AND FORTH. PRN THORAZINE GIVEN AT THIS TIME.
--- NOTE | 2017-04-18 22:30 | NUR ---
PT IN HER ROOM AND QUIET. PT UP AND DOWN FLUSHING TOILET. WILL CONTINUE TO MONITOR PT FOR EFFECTIVENESS OF MEDICATION.
--- NOTE | 2017-04-19 03:04 | NUR ---
B: PT SCREAMING NON SENSICLE SPEECH AT STAFF, CLOGGING TOILETS WITH TOILET TISSUE AND PAPER SAMMY, THROWING SATURATED PAPER SAMMY ACROSS ROOM STATING " MY CALUSES NEED SOAKED AND SOFTENED, THE FLOOR ISNT FLOODED A FEW INCHES OF WATER JUST SOFTEN THE FLOOR NOT FLOOD IT THAT WOULD WE WATER THIS HIGH (PLACES HANDS AT HEIGHT OF MID CHEST )". SLAMMING DOORS, REFUSING PO MEDICATIONS. I: REMOVE CUPS AND BASINS TO COLLECT WATER, REMOVE EXCESSIVE PAPER SAMMY FROM ROOM, LIMIT SETTING, 1-1 AND PRESENTATION OF REALITY. PRN THORAZINE 8 ADMINISTERED. R: DECREASED AGITATION, LAYING IN BED RESTING QUIETLY, DECREASED TOILET FLUSHING AND USE OF SINK. P: CONTINUE TO ENCOURAGE MEDICATION COMPLIANCE, PRESENTATION OF REALITY, 1-1 AND GROUP THERAPY INTERACTIONS.
--- NOTE | 2017-04-19 04:28 | NUR ---
24 HR chart check completed.
--- NOTE | 2017-04-19 06:42 | NUR ---
PT SLEPT APPROXIMATELY 4 HOURS INTERRUPTED. NO S/S OF DISTRESS NOTED. NO C/O PAIN. SEE [facility] FLOWSHEET FOR SPECIFIC MONITORING.
[2017-04-19 07:54] VITALS: BP 120/62
--- NOTE | 2017-04-19 11:39 | NUR ---
PT did attend RT Group/Coloring with talking and reminiscing. PT was very appropriate during group. PT was friendly and courteous of other PTs. PT helped and encouraged other PTs during exercise. PT when AT asked group what they wanted to do for group,PT voiced preference for coloring.
--- NOTE | 2017-04-19 11:55 | NUR ---
DR LAWRENCE UPDATED ON PATIENT REFUSING MORNING MEDICATIONS. NEW ORDERS NOTED.
--- NOTE | 2017-04-19 12:44 | NUR ---
PATIENT REFUSED PO MEDICATION BUT WAS OKAY WITH IM INJECTION STATING "IT'S ONLY WATER" AND STARTED TO PRAY RELIGOIUSLY PROIR TO HALDOL 5MG IM GIVE TO LEFT DELTIOD. TOLERATED WELL.
--- NOTE | 2017-04-19 14:49 | NUR ---
PATIENT IS ALERT AND ORIENTED TO PERSON, PLACE, TIME AND SITUATION WITH CONFUSION. MOOD IS IRRITABLE, LABILE, PSYCHOTIC A COUPLE TIMES THROUGOUT THE DAY. DENIES ANY HALLUCINATION, DELUSIONS, HI/SI OR PAIN. PATIENT IS PARTICIPATING IN ACTIVITES AT LEAST ONCE TODAY. REFUESED MEDICATIONS TODAY, HALDOL GIVEN IM PER PATIENT REQUEST D/T REFUSING PO MEDS. SHE PREFERS IM MEDICATION AND STATES "IT'S JUST WATER". CURRENTLY PATIENT IS IN BED RESTING QUIETY WITH EYES CLOSED. PATIENT IS INDEPENDENT WITH ADL'S, CUEING REQUIRED AT TIMES, CLEANS UP AT THE SINK, REFUSES SHOWERS. MEAL INTAKES ARE GOOD WITH ADEQUATE FLUIDS. CONTINENT OF BOWEL AND BLADDER. Q 15 MINUTE SAFETY CHECKS MAINTAINED. PATIENT POSITIVE WITH AUDITORY HALLUCINATIONS- TALKING TO SELF IN DINING ROOM.
--- NOTE | 2017-04-19 15:40 | NUR ---
PT did attend RT Group/coloring this afternoon. PT was upbeat and talkative while coloring in group. PT was also complimenting other PTs on their coloring. PT really enjoys coloring and was appropriate when she talked to everyone
--- NOTE | 2017-04-19 17:05 | NUR ---
PATIENT REFUSED METFORMIN AT THIS TIME, STATED "DR. CHÁVEZ TOLD ME TO AVOID ALL MEDICATIONS" 1:1 PROVIDED ON MEDICATONS AND INEFFECTIVE.
--- NOTE | 2017-04-19 18:53 | NUR ---
LONGTERM HEARING WAS HELD WITH MAGISTRATE SEALS. PT TO BE DENTAINED AND FORCE MEDICATIONS ALLOWED PER MAGISTRATE SEALS.
[2017-04-19 19:56] VITALS: BP 128/60
--- NOTE | 2017-04-19 22:14 | NUR ---
B- NON MEDICATION COMPLIANCE I- EDUCATE PT ON IMPORTANCE OF MEDICATION COMPLIANCE R- PT MEDICATION COMPLIANT P- REEDUCATE PT ON MEDICATION WHEN NEEDED
--- NOTE | 2017-04-20 04:50 | NUR ---
PT SLEPT GREATER THAN 8 HOURS THIS SHIFT. MEDICATION COMPLIANT WITH EVENING MEDICATION. NO S/S OF DISTRESS NOTED. NO C/O PAIN. SEE [facility] FLOWSHEET FOR SPECIFIC MONITORING. Q 15 MINUTE SAFETY CHECKS MAINTAINED.
--- NOTE | 2017-04-20 05:59 | NUR ---
24 HR chart check completed.
--- NOTE | 2017-04-20 06:37 | NUR ---
pt refused a shower at the beginning of the shift and at the end. will continue to approach pt on showering.
[2017-04-20 08:36] VITALS: BP 124/73
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
--- NOTE | 2017-04-20 09:58 | NUR ---
ALAN CROCKER MADE AWARE PT REFUSED ALL MEDICAL MEDICATIONS THIS MORNING. NNO AT THIS TIME.
--- NOTE | 2017-04-20 10:28 | NUR ---
PT did not attend RT Group this morning. PT was asleep in her room. AT attempted to wake PT to encourage PT to join group but was unable to do so.
--- NOTE | 2017-04-20 10:31 | NUR ---
ALAN DEMPSEY ON UNIT AND SPOKE WITH PT AT BEDSIDE AT LENGTH ABOUT MEDICATIONS. ALAN DEMPSEY ASKED THIS NURSE TO REATTEMPT AM MEDICAL MEDICATIONS. REATTEMPTED AT THIS TIME PER REQUEST, PT TOOK MEDICATIONS WITH MUCH ENCOURAGEMENT AND EDUCATION.
--- NOTE | 2017-04-20 17:21 | NUR ---
UPON INTERACTIONS WITH HONEY SHE IS NOTED TO MAINTAIN HER PSYCHOTIC BEHAVIORS T/O THE SHIFT. VOICING PARANOID DELUSIONS ABOUT MEDICATIONS, STAFF, AND HER FAMILY. MOOD IS LABILE WITH ANGLICAN OVERTONES. EASILY IRRITABILE WHEN SPEAKING WITH PT. THOUGHT PROCESS IS TANGENTAL AND CIRCUMSTANTIAL. UNABLE TO RULE OUT HALLUCINATIONS D/T PT HAS BEEN OBSERVED TALKING TO SELF. DAMANDING OF STAFF AND PEERS. SPEECH IS PRESSURED AND NONSENSICAL AT TIMES. HAS BEEN SLEEPING INTERMITTENTLY T/O THE SHIFT. MEDICATION COMPLIANT WITH MUCH ENCOURAGEMENT AND EDUCATION EACH MED PASS, PRAISE GIVEN WHEN COMPLIANT. APPETITE GOOD, TAKING FLUIDS WELL. LIMITED PEER INTERACTIONS TODAY WHILE IN DINNING ROOM.
--- NOTE | 2017-04-20 17:49 | NUR ---
TREATMENT TEAM WAS HELD WITHTHE FOLLOWING: DR. HOWARD CNP, MEDICAL STUDENT, RN, AT, SW.
[2017-04-20 20:33] VITALS: BP 148/72
--- NOTE | 2017-04-20 21:53 | NUR ---
CLIENT RESTING IN BED AT THIS TIME. MEDICATION COMPLIANT. VOICES NO COMPLAINTS OF PAIN OR DISCOMFORT AT THIS TIME
--- NOTE | 2017-04-21 04:16 | NUR ---
24 HR chart check completed.
--- NOTE | 2017-04-21 04:58 | NUR ---
24 HR chart check completed.
--- NOTE | 2017-04-21 06:48 | NUR ---
CLIENT SLEPT GREATER THAN SIX HOURS THROUGHOUT SHIFT
[2017-04-21 08:00] VITALS: BP 113/66
--- NOTE | 2017-04-21 11:06 | NUR ---
Patient refuses to participate in any goal activities
--- NOTE | 2017-04-21 11:10 | NUR ---
HALDOL DECANOATE 150MG GIVE IN R DELTOID PER ORDERS. PT ACCEPTED MEDICATION WILLINGLY AND TOLERATED WELL WITHOUT INCIDENT.
--- NOTE | 2017-04-21 12:44 | NUR ---
PT initially stated she did not want to attend RT Group/Games because she "didnt have a bra on." AT offered to get PT a hospital gown to wear,PT stated they were "too itchy against my skin." AT encouraged PT to change her mind and join. PT did come to group but only stayed approximately 10 minutes before stating "I dont feel comfortable." AT asked her what was wrong and PT repeated her statement as she was leaving. AT will attempt to encourage PT to participate this afternoon
--- NOTE | 2017-04-21 15:44 | NUR ---
PT did not attend RT Group/Painting this afternoon. PT stated she could not because she recieved a shot today and the smell of the paint would make her sick
--- NOTE | 2017-04-21 17:08 | NUR ---
PATIENT REFUSED EVENING METFORMIN AND DINNER, STATES SHE WISHES TO SLEEP.
--- NOTE | 2017-04-21 17:24 | NUR ---
PT HAS BEEN PLEASANT AND COOPERATIVE WITH STAFF THIS SHIFT. CONTINUES TO VOICE PARANOID DELUSIONS. ISOLATIVE TO ROOM MOST OF THE SHIFT. COMES OUT INTO MILIEU OCCASIONALLY, PRAISE GIVEN DURING THESE TIMES. ALERT AND VERBAL, ABLE TO MAKE NEEDS AND WANTS KNOWN TO STAFF. NO HALLUCINATIONS NOTED. REFUSED MEDICAL MEDICATIONS THIS SHIFT AFTER MULTIPLE ATTEMPTS. MEDICATION EDUCATION ATTEMPTED AND REFUSED. COMPLIANT WITH PO HALDOL THIS SHIFT. HAS BEEN MORE CALM AND LESS INTRUSIVE/DISRUPTIVE/DEMANDING. POSITIVE PEERS INTERACTIONS THIS AFTERNOON DURING LUNCH. RESPIRATIONS EASY AND EVEN. NO ACUTE DISTRESS NOTED.
--- NOTE | 2017-04-21 17:49 | NUR ---
TREATMENT TEAM WAS HELD WITHTHE FOLLOWING: DR. HOWARD CNP, MEDICAL STUDENT, RN, AT, AND SWs. DR. LAWRENCE STATED THAT PT WAS STAYING.
--- NOTE | 2017-04-21 17:54 | NUR ---
WILL CONTINUE WITH Q15 MIN OBSERVATION CHECKS PER ORDERS. SHIFT CHART CHECK COMPLETED.
--- NOTE | 2017-04-22 03:01 | NUR ---
24 HR chart check completed.
--- NOTE | 2017-04-22 06:07 | NUR ---
B: AGGRESSION I: THERAPEUTIC COMMUNICATION, MEDICATION COMPLIANCE R: MEDICATIONS TAKEN WITH REDIRECTION P: CONTINUE PLAN OF CARE, CONTINUE MEDICATION COMPLIANCE
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
[2017-04-22 07:36] VITALS: BP 117/82
--- NOTE | 2017-04-22 11:11 | NUR ---
PT did not attend RT Group/Crafts this morning. AT attempted to encourage PT to attend. PT told AT she could not attend because she has injured her feet several times this year and the floors hurt her feet to walk on, so she needs to rest her feet so she able to walk up the boyd for lunch. This staff member has seen PT walk up and down the boyd many times with no issues. PT has delusional thoughts
--- NOTE | 2017-04-22 15:20 | NUR ---
PT did attend RT Group/Reminiscing this afternoon. PT also particapated during group. PT went off topic several times and had to be redirected back with no issues. PT was smiling, laughing and singing with another PT.
[2017-04-22 20:33] VITALS: BP 140/80
--- NOTE | 2017-04-23 04:14 | NUR ---
24 HR chart check completed.
--- NOTE | 2017-04-23 06:30 | NUR ---
PATIENT SLEPT > 8 HOURS. VOICES NO COMPLAINTS OF PAIN OR DISCOMFORT
--- NOTE | 2017-04-23 06:32 | NUR ---
B: AGGRESSION, INCREASED BAPTIST DELUSIONS I: THERAPEUTIC COMMUNICATION, 1:1, GOAL ORIENTED R: DECREASED AGGRESSIVE BEHAVIORS AND DECREASED BAPTIST DELUSIONS. ONLY PRAYED OVER MEDICATIONS THIS SHIFT P: HELP TO FIND COPING SKILLS TO DECREASE AGGRESSION. MEDICATION COMPLIANCE, PARTICIPATE IN GROUPS
[2017-04-23 07:41] VITALS: BP 143/74
--- NOTE | 2017-04-23 10:26 | NUR ---
PATIENT IS ALERT AND ORIENTED TO PERSON, PLACE AND TIME. ABLE TO VOICE NEEDS, RESPIRATIONS ARE EASY ON ROOM AIR. PATIENT DENIES ANY HALLUCINATIONS, DELUSIONS, HI/SI. DENIES ANY PAIN. INTERACTIVE WITH STAFF AND ISOLATIVE AT TIMES. PATIENT IS MEDICATION COMPLIANT WITH EDUCATION ON MEDICINE. PATIENT IS AMBULATORY WITH STEADY GAIT. INDEPENDENT WITH ACTIVITIES OF DAILY LIVING. CONTINENT OF BOWEL AND BLADDER. REFUSES TO SHOWER BUT CLEANS UP IN THE BATHROOM. Q 15 MINUTE SAFETY CHECKS MAINTAINED.
--- NOTE | 2017-04-23 15:31 | NUR ---
DR LISA ON UNIT TO SEE PATIENT.
[2017-04-23 19:46] VITALS: BP 120/76
--- NOTE | 2017-04-23 19:59 | NUR ---
24 HR chart check completed.
--- NOTE | 2017-04-23 23:06 | NUR ---
B- NON MEDICATION COMPLIANT I - TEACH PT THE IMPORTANCE OF MEDICATION COMPLIANCE R- PT TOOK MEDICATION BY MOUTH P - RETEACH PT ON NEW MEDICATIONS AND WHEN CURRENT MEDICATIONS WHEN NEEDED
[2017-04-24 05:44] LABS: BUN 11 mg/dl (7-24); CHLORIDE 106 mmol/L (98-107); CREATININE 0.68 mg/dL (0.55-1.02); MAGNESIUM 2.1 mg/dL (1.5-2.1); PHOSPHOROUS 4.3 mg/dL (2.5-4.9); POTASSIUM 3.8 mmol/L (3.5-5.1); SODIUM 137 mmol/L (136-145)
--- NOTE | 2017-04-24 05:57 | NUR ---
PT SLEPT >8 HOURS. NO S/S OF DISRESS NOTED. NO C/O PAIN. SEE [facility] FLOWSHEET FOR SPECIFIC MONITORING.
[2017-04-24 05:58] LABS: BASO # 0.1 10*3/uL (0.0-0.1); BASO % 0.7 % (0.0-1.0); EOS # 0.1 10*3/uL (0.0-0.4); EOS % 1.6 % (1.0-4.0); HEMATOCRIT 41.8 % (37.0-47.0); HEMOGLOBIN 13.7 g/dl (12.0-16.0); LYMPH # 2.3 10*3/uL (1.3-4.4); LYMPH % 32.9 % (27.0-41.0); MEAN CELL VOLUME 85.3 fl (81.0-99.0); MEAN CORPUSCULAR HGB CONC 32.8 g/dl (33.0-37.0); MEAN PLATELET VOLUME 9.6 fl (9.6-12.3); MONO # 0.9 10*3/uL (0.1-1.0); MONO % 12.1 % (3.0-9.0); NEUT # 3.7 10*3/uL (2.3-7.9); NEUT % 52.4 % (47.0-73.0); PLATELET COUNT AUTOMATED 232 10*3/uL (130-400); RED CELL DISTRI WIDTH 12.8 % (0-14.5); WHITE BLOOD COUNT 7.1 10*3/uL (4.8-10.8)
[2017-04-24 07:44] VITALS: BP 138/69
--- NOTE | 2017-04-24 11:03 | NUR ---
DR SHAHID ON UNIT TO SEE PATIENT.
--- NOTE | 2017-04-24 14:40 | NUR ---
PATIENT IS ALERT AND ORIENT TO PERSON, PLACE AND TIME. ABLE TO VOICE NEEDS. RESPIRATIONS ARE EASY, NON-LABORED. DENIES ANY HALLUCINATIONS, DELUSIONS, HI/SI. NO RESPONSE TO INTERNAL STIMULI NOTED. PATIENT TALKED WITH LAURYN GANDHI CNP THIS MORNING AND WITH 1:1 PATIENT TOOK A SHOWER. PATIENT HAS BEEN MEDICATION COMPLIANT AND EDUCATED ON MEDICATIONS. PATIENT IS INDEPENDENT WITH ACTIVITIES OF DAILY LIVING, AMBULATORY WITH STEADY GAIT. DENIES ANY PAIN. GOOD APPETITE WITH ADEQUATE FLUIDS. INTERACTIVE WITH STAFF AND OTHER PATIENTS. Q 15 MINUTE SAFETY CHECKS.
[2017-04-24 19:37] VITALS: BP 136/79
--- NOTE | 2017-04-24 20:00 | NUR ---
24 HR chart check completed.
--- NOTE | 2017-04-24 21:25 | NUR ---
B- MEDICATION COMPLIANCE AND ARGUMENTATIVE I - TEACH PT THE IMPORTANCE OF MEDICATION COMPLIANCE R- PT TOOK MEDICATION BY MOUTH WITH NO ARGUMENTATIVE BEHAVIORS NOTED P - CONTINUE TO TEACH PT ON MEDICATIONS MEDICATION COMPLIANT. NO S/S OF DISTRESS NOTED. NO C/O PAIN.
--- NOTE | 2017-04-25 06:56 | NUR ---
PT SLEPT GREATER THAN 8 HOURS. NO S/S OF DISTRESS. NO C/O PAIN. SEE [facility] FOR SPECIFIC MONITORING.
[2017-04-25 08:02] VITALS: BP 123/63
--- NOTE | 2017-04-25 11:09 | NUR ---
DR. SHAHID ON UNIT TO SEE PATIENT.
--- NOTE | 2017-04-25 12:30 | NUR ---
PT did attend RT Group/positive traits this morning as well as particapated. PT was happy and pleasant. PT was encouraging,friendly and kind to other PTs and staff. PT wanted to dominate conversations and talk about herself but PT was easily redirected without incident
--- NOTE | 2017-04-25 14:47 | NUR ---
PATIENT IS ALERT AND ORIENTED TO PERSON, PLACE AND TIME; ABLE TO VOICE NEEDS. RESPIRATION ARE EASY, NON-LABORED. MOOD IS STABLE, MEDICATION EDUCATION PROVIDED WITH MED COMPLIANCE. THOUGHT PROCESS IS ORGANIZED AND GOAL DIRECTED. DENIES ANY HALLUCINATIONS, DELUSIONS, HI/SI. DENIES ANY PAIN OR DISCOMFORT. INTERACTIVE WITH STAFF AND PEERS, CALM AND COOPERATIVE. AMBULATORY WITH STEADY GAIT. INDEPENDENT WITH ACTIVITIES OF DAILY LIVING. APPETITE IS GOOD WITH ADEQUATE FLUIDSL. CONTINENT OF BOWEL AND BLADDER. Q 15 MINUTE SAFETY CHECKS.
--- NOTE | 2017-04-25 15:45 | NUR ---
PT did attend RT Group/Crafts with positivity. PT participated and was very friendly,pleasant and encouraging to all the PTs. PT was also complimenting everyone on their crafts. there were no issues with PT and she was appropriate during group
--- NOTE | 2017-04-25 19:32 | NUR ---
24 HR chart check completed.
[2017-04-25 19:52] VITALS: BP 118/65
--- NOTE | 2017-04-26 00:56 | NUR ---
B- ISOLATIVE I - ENCOURAGE PT TO ATTEND SNACK AND INTERACT WITH PEERS R - PT REFUSED SNACK AND REFUSED TO COME OUT OF ROOM P - CONTINUE TO ENCOURAGE INTERACTIONS WITH PEERS AND STAFF. ENCOURAGE PT TO ATTEND GROUPS. MEDICATION COMPLIANT. NO S/S OF DISTRESS NOTED. NO C/O PAIN.
--- NOTE | 2017-04-26 06:13 | NUR ---
PT SLEPT 6+ HOURS THIS SHIFT. NO S/S OF DISTRESS OR C/O PAIN NOTED. SEE [facility] FLOWSHEET FOR SPECIFIC MONITORING.
[2017-04-26 09:02] VITALS: BP 110/68
--- NOTE | 2017-04-26 13:10 | NUR ---
Pyrotechnician Note: Follow-up appointments made with Dr. Ashish Pierce, her PCP, for 05/05/17 at 10:50 am, at the [address] [place] [phone], [place], [place] office. Appointment with Dr. Eloina Gongora for 05/31/17 at 4:45pm at [address] The counselor, Fernanda, will return our call to make an appointment with her.
--- NOTE | 2017-04-26 13:29 | NUR ---
[place] Hole/Puzzles The object of this game is to throw nobles bags into holes and putting puzzles together as a group. Patient was in attendece as well as participated. This group helped the patient with socialization, focusing on a task, self esteem and thinking of others. Patient encouraged other patients even helping them with ideas on how to get the bags into the holes. Patient was thrilled to do puzzles and encouraged others to join her in putting a puzzle together. Patient focuses deeply when putting them together but also asks opinion of others on where pieces should go. Patient also won a prize for participation in [employer]
--- NOTE | 2017-04-26 15:38 | NUR ---
Memory Game The object is to place the cards on the table in rows and take turns trying to get a match. Patient attended group as well as participated. Patient stated shed never played before. this is a very good game for the patient to help with socialization,need at least 2 to play, focusing and memory
--- NOTE | 2017-04-26 17:26 | NUR ---
PATIENT IS ALERT AND ORIENTED TO PERSON, PLACE, TIME. MEMORY INTACT. RESPIRATIONS EASY ON ROOM AIR. MOOD IS STABLE, AFFECT IS BROAD RANGE, SPEECH IS WNL AND COHERENT, ABLE TO MAKE NEEDS KNOWN WITHOUT DIFFICULTY. PT DENIES HALLUCINATIONS, NO RESPONSE TO INTERNAL STIMULI NOTED. PT DENIES SI/HI. NO PARANOIA/DELUSIONS NOTED. MEDICATION COMPLIANT WITHOUT DIFFICULTY. PT VOICES UNDERSTANDING OF MEDICATION REGIME AND COMES TO STAFF AT MED PASS TIMES TO ASK FOR ROUTINELY SCHEDULED MEDICATIONS APPROPRIATELY AND IS ABLE TO STATE ACCURATELY THE INTENDED USE OF EACH MEDICATION. AMBULATORY WITH STEADY GAIT, INDEPENDENT WITH ADLS, SHOWERED THIS AM, CONTINENT OF BOWEL AND BLADDER. FEEDS SELF, GOOD APPETITE AND ADEQUATE FLUID INTAKE NOTED. CALM AND PLEASANT, INTERACTIVE WITH STAFF AND PEERS, PARTICIPATES IN GROUPS AND ACTIVITIES. NO DISTRESS NOTED. Q15 MIN SAFETY CHECKS MAINTAINED, REFER TO [facility] FLOWSHEET FOR SPECIFIC MONITORING.
--- NOTE | 2017-04-26 17:31 | NUR ---
SHIFT CHART CHECK COMPLETED.
--- NOTE | 2017-04-26 18:57 | NUR ---
CALLED JUANA Armas AT [phone], PT BROTHER, PER REQUEST OF PT. PT STATES SHE NEEDS JUANA TO TRANSPORT HER HOME BECAUSE HE HAS HER HOUSE KEYS. MESSAGE LEFT ON VOICEMAIL AT THIS TIME. WITNESSED BY 2 OTHER RNS.
--- NOTE | 2017-04-26 19:47 | NUR ---
TREATMENT TEAM WAS HELD WITHTHE FOLLOWING: DR. LAWRENCE, RN, AT, SW, DIRECTOR AND MEDICAL STUDENT. DISCHARGE PENDING FOR Tuesday.
--- NOTE | 2017-04-26 19:48 | NUR ---
SW REQUESTED BRICK CHIMNEY SUPERVISOR MAKE FOLLOW UP APPOINTMENTS WITH DANIEL MARSH AND DR. LIZZIE KNUTSON.
--- NOTE | 2017-04-26 19:49 | NUR ---
ZANE ATTEMEPTED TO SPEAK WITH pT'S BROTHER JUANA REGARDING DISCHARGE BUT VM WAS FULL. ZANE FINALING RECEIVED CALL BACK FROM BROTHER JUANA. JUANA CAN [employer] OVEN TENDER PT AFTER WORK ON Tuesday AROUND 6PM. ZANE NOTIFIED RN.
--- NOTE | 2017-04-26 19:51 | NUR ---
ZANE SPOKE WITH ALE SANCHEZ COUNSELING REGARDING DISCHARGE FOR . ALE QUESTIONED WHEHER PT WAS STILL COURT ORDERED FOR TREATMENT. ZANE STATED THAT COURT PAPERS WERE NOT RECEVIED YET DUE TO HOLIDAY AND WILL SEND THEM WHEN THER ARE RECEIVED. ALE WILL SEE PT AT HER HOME ON TuesdayApr AT 3PM.
[2017-04-26 19:56] VITALS: BP 138/65
--- NOTE | 2017-04-26 21:00 | NUR ---
MEDICATION COMPLIANT. EXCITED ABOUT DISCHARGE TOMORROW. PLEASENT AND INTERACTIVE.
--- NOTE | 2017-04-27 01:58 | NUR ---
UP TO GET DRINK OF WATER. PLEASENT AND INTERACTIVE. GAIT STEADY.
--- NOTE | 2017-04-27 05:16 | NUR ---
HAS SLEPT INTERMITTENLTY THIS SHIFT. REMAINS EXCITED FOR DISCHARGE TODAY. TAKING PO FLUIDS WELL.
--- NOTE | 2017-04-27 05:16 | NUR ---
24 HR chart check completed.
[2017-04-27 08:16] VITALS: BP 136/83
[2017-04-27] MEDS ORDERED: Vitamin D PO (08:23)
[2017-04-27] MEDS ORDERED: HALDOL DEC100 MG/1 M IM (08:34)
--- NOTE | 2017-04-27 11:10 | NUR ---
CALL PLACED TO [phone], SPOKE TO DR. MONTES, MADE AWARE OF DISCHARGE FOR TODAY, SALESPERSON HEARING AIDS TIME SET FOR 6PM.
--- NOTE | 2017-04-27 12:56 | NUR ---
Trevon/Eri/Think Fast Pacient did attend group as well as participated. This perticular group help patient with foucusing, socialization, self esteem and encouraging to others. Patient did very well in group happy and excited and very funny today
--- NOTE | 2017-04-27 14:45 | NUR ---
Painting/Positive Traits PT was in attendence for this group in the very begining. Patient decided before starting group she needed to rest because she was going home tonight. This group would of been an excellent group for this patient in socialization as well as focusing on a task
--- NOTE | 2017-04-27 15:09 | NUR ---
KYLER CAMPBELL CNP FROM [facility] HERE TO SEE PT AT THIS TIME.
--- NOTE | 2017-04-27 15:27 | NUR ---
PT IS ALERT AND ORIENTED TO PERSON, PLACE, TIME AND SITUATION. MEMORY INTACT. RESPIRATIONS EASY ON ROOM AIR. MOOD IS STABLE, EUTHYMIC, AFFECT IS BROAD RANGE AND APPROPRIATE. SPEECH IS WNL AND COHERENT, ABLE TO MAKE NEEDS KNOWN. PT DENIES HALLUCINATIONS, NO RESPONSE TO INTERNAL STIMULI NOTED. PT DENIES SI/HI. NO PARANOIA/DELUSIONS NOTED. MEDICATION COMPLIANT, PT VERBALIZES UNDERSTANDING OF EACH MEDICATION AND IT'S INTENDED USE. PT IS AMBULATORY WITH STEADY GAIT, INDEPENDENT WITH ADLS, SHOWERED THIS AM, CONTINENT OF BOWEL AND BLADDER, DISPLAYS GOOD APPETITE WITH ADEQUATE FLUID INTAKE. VERBALIZES READINESS AND EXCITMENT REGARDING DISCHARGE FOR TODAY. NO DISTRESS NOTED. Q15 MIN SAFETY CHECKS MAINTAINED, REFER TO [facility] FLOWSHEET FOR SPECIFIC MONITORING.
--- NOTE | 2017-04-27 17:11 | NUR ---
SHIFT CHART CHECK COMPLETED.
--- NOTE | 2017-04-27 17:11 | NUR ---
PRODUCTION SHIFT SUPERVISOR: FAXED UPDATED PATIENT INFORMATION AND DOSCHARGE SUMMARY TO DR. VALDES AND DORON AGUILERA AT [facility] AT [phone] . & ALSO TO dR. KNUTSON AT [id number]. BOTH FAXED WERE CONFIRMED.
--- NOTE | 2017-04-27 18:43 | NUR ---
PT DISCHARGED TO HOME AT THIS TIME VIA PRIVATE VEHICLE WITH HER BROTHER, JUANA. ALL DISCHARGE INSTRUCTIONS AND MEDICATION INSTRUCTIONS WERE REVIEWED WITH THE PT PRIOR TO DISCHARGE WITH PT'S STATED UNDERSTANDING. PT VERBALIZED UNDERSTANDING OF MEDICATION REGIME AND IMPORTANCE OF COMPLIANCE. ALL PERSONAL BELONGINGS WERE SENT WITH THE PT. PT WAS ESCORTED OFF THE UNIT VIA WHEELCHAIR WITH BROTHER JUANA AND LUIS LOPEZ. PT LEFT THE UNIT IN STABLE CONDITION.
--- NOTE | 2017-04-27 19:16 | NUR ---
sw had Pt sign discharge papers and gave her copy. Pt voiced understanding. Sw gave Pt copy of POC forms. PT discharged home with Brother Chan providing transportation.
== END 2017-04-27 18:43 | disposition home or self-care (01) | DRG 885 ==
LOC: 3N 23:32
PROVIDERS: Internal Medicine; Psychiatry & Neurology Psychiatry; Registered Nurse; ADMIT Psychiatry & Neurology Psychiatry
DX: F25.0 Schizoaffective disorder, bipolar type (principal); E11.9 Type 2 diabetes mellitus without complications; I10 Essential (primary) hypertension; E78.5 Hyperlipidemia, unspecified; F29 Unspecified psychosis not due to a substance or known physiological condition; F22 Delusional disorders; E55.9 Vitamin D deficiency, unspecified; Z91.14 Patient's other noncompliance with medication regimen; Z79.899 Other long term (current) drug therapy; Z88.8 Allergy status to other drugs, medicaments and biological substances; Z79.84 Long term (current) use of oral hypoglycemic drugs